=== PATIENT | male | born 1950 | race Caucasian/White ===

== ENCOUNTER → 2019-09-16 | Outpatient (CLI) | payer OTHER ==
[~2019-09-16] MED LIST: ESOM20CA PO; GAS X PO; IRON PO; LACT1CAP35 PO
[2019-09-16 10:41] LABS: BASOPHILS # (AUTO) 0.01 x10^3/uL (0-0.1); BASOPHILS % (AUTO) 0 % (0-1); EOSINOPHILS # (AUTO) 0.05 x10^3/uL (0-0.4); EOSINOPHILS % (AUTO) 1 % (1-7); LYMPHOCYTES # (AUTO) 0.44 x10^3/uL (1-3.4); LYMPHOCYTES % (AUTO) 8 % (22-44); MD NO; MEAN CORPUSCULAR HEMOGLOBIN 23.4 pg (27.5-34.5); MEAN CORPUSCULAR HGB CONC 30.8 g/dL (33.2-36.2); MEAN PLATELET VOLUME 6.9 fL (7.4-10.4); MONOCYTES # (AUTO) 0.42 x10^3/uL (0.2-0.8); MONOCYTES % (AUTO) 8 % (2-9); NEUTROPHILS # (AUTO) 4.35 x10^3/uL (1.8-6.8); NEUTROPHILS % (AUTO) 83 % (42-75); PLATELET COUNT 141 x10^3/uL (130-400); RED BLOOD COUNT 4.69 x10^6/uL (4.38-5.82); RED CELL DISTRIBUTION WIDTH 21.6 % (9.4-14.8)
[2019-09-16 10:54] LABS: ALANINE AMINOTRANSFERASE 24 U/L (12-78); ALBUMIN 3.2 g/dL (3.4-5.0); ANION GAP 8 mmol/L (5-15); CALCIUM 9.5 mg/dL (8.5-10.1); CHLORIDE 102 mmol/L (98-107); CREATININE 1.29 mg/dL (0.7-1.3)
[2019-09-16 10:57] LABS: ALKALINE PHOSPHATASE 95 U/L (45-117); BILIRUBIN,TOTAL 0.5 mg/dL (0.2-1.0); TOTAL PROTEIN 8.4 g/dL (6.4-8.2)
== END | disposition home or self-care (01) ==
LOC: STAR 09:39
PROVIDERS: ATTEND Surgery Vascular Surgery
DX: Z01.818 Encounter for other preprocedural examination (principal)
CPT/HCPCS: 36415; 80053; 85025; 93005

== ENCOUNTER 2019-09-20 05:54 | Inpatient (IN) | payer MEDICARE, OTHER ==
[~2019-09-20] VITALS: Ht 182.9 cm; Wt 66.3 kg
[2019-09-20] MEDS ORDERED: PROTAMINE SULFATE 10 MG/ML, 5ML ONE (06:12)
[2019-09-20] MEDS ORDERED: BACITRACIN 50,000 UNIT ONE (06:13)
[2019-09-20] MEDS ORDERED: HEPARIN 1,000 UNITS/ML, 10ML ONE (06:13)
[2019-09-20] MEDS ORDERED: FENTANYL PF 250 MCG/5ML ONE (06:55)
[2019-09-20] MEDS ORDERED: MIDAZOLAM 1 MG/ML, 2ML ONE (06:55)
[2019-09-20] MEDS ORDERED: PROPOFOL 10 MG/ML, 20ML ONE (06:55)
[2019-09-20] MEDS ORDERED: ROCURONIUM 10MG/ML,5ML ONE ×2 (06:55→09:49)
[2019-09-20] MEDS ORDERED: ONDANSETRON 2MG/ML, 2ML ONE (06:56)
[2019-09-20] MEDS ORDERED: CEFAZOLIN 1,000 MG ONE ×2 (06:56)
[2019-09-20] MEDS ORDERED: MEPERIDINE/PF 25MG/0.5ML IVPush PRN (07:00)
[2019-09-20] MEDS ORDERED: PROMETHAZINE 25 MG/ML, 1ML IVPush PRN (07:00)
[2019-09-20] MEDS ORDERED: CHLORHEXIDINE 15 ML UDC MM ONE (07:00)
[2019-09-20] MEDS ORDERED: LABETALOL 5MG/ML, 20ML IV PRN (07:00)
[2019-09-20] MEDS ORDERED: OXYcodone 5 MG/5 ML ORAL.SOL UDC PO PRN (07:00)
[2019-09-20] MEDS ORDERED: DIAZEPAM 5 MG/ML, 2ML IVPush PRN (07:00)
[2019-09-20] MEDS ORDERED: hydrALAzine 20 MG/ML, 1ML IV PRN (07:00)
[2019-09-20] MEDS ORDERED: ONDANSETRON 2MG/ML, 2ML IVPush PRN (07:00)
[2019-09-20] MEDS ORDERED: FENTANYL PF 100 MCG/2ML IV PRN (07:00)
[2019-09-20] MEDS ORDERED: HYDROmorphone 1 MG/ML, 1ML INJ IVPush PRN (07:00)
[2019-09-20] MEDS: LACTATED RINGERS 1,000 ML IV SCH (07:03)
[2019-09-20] MEDS ORDERED: ALBUMIN HUMAN 5% 500 ML ONE (07:57)
[2019-09-20] MEDS ORDERED: PHENYLEPHRINE 10 MG/ML ONE (08:18)
[2019-09-20] MEDS ORDERED: HEPARIN 1,000 UNITS/ML, 30ML ONE (09:11)
[2019-09-20] MEDS ORDERED: AMIODARONE 450 MG in DEXTROSE 5% 241 ML IV PRN (09:30)
[2019-09-20] MEDS ORDERED: AMIODARONE 150 MG in DEXTROSE 5% 100 ML IV ONE (09:30)
[2019-09-20] MEDS ORDERED: FILTER 0.22 MICRON FOR AMIODARONE IV PRN (09:30)
[2019-09-20] MEDS ORDERED: INSULIN SINGLE DOSE, ER ONE (10:15)
[2019-09-20] MEDS ORDERED: DEXTROSE 5% 50 ML IV ONE (10:30)
[2019-09-20] MEDS ORDERED: CALCIUM CHLORIDE 10%, 10ML SYR ONE (10:42)
[2019-09-20] MEDS ORDERED: PROPOFOL 50 ML ONE (11:35)
[2019-09-20] MEDS ORDERED: PROPOFOL 100 ML IV PRN (11:53)
[2019-09-20 12:00] VITALS: BP 90/55
[2019-09-20] MEDS ORDERED: SENNA 176 MG/5 ML ORAL SOL NG PRN (12:00)
[2019-09-20] MEDS ORDERED: BISACODYL 10 MG SUPP PR PRN (12:00)
[2019-09-20] MEDS ORDERED: FENTANYL PF 100 MCG/2ML IVPush PRN ×2 (12:00→16:30)
[2019-09-20] MEDS ORDERED: LACTULOSE 20 GM/30 ML UDC NG PRN (12:00)
[2019-09-20] MEDS ORDERED: PANTOPRAZOLE 40 MG IV IV SCH (12:00)
[2019-09-20] MEDS ORDERED: LIDOCAINE-MPF 1%, 2ML ENDO PRN (12:00)
[2019-09-20] MEDS ORDERED: PHARMACY MAY ADJ FOR RENAL FX MC SCH (12:00)
[2019-09-20] MEDS ORDERED: SODIUM CHLORIDE 0.9% 1,000 ML IV SCH (12:00)
[2019-09-20] MEDS ORDERED: PROPOFOL 100 ML IV ONE (12:01)
[2019-09-20 12:15] VITALS: BP 112/69
[2019-09-20] MEDS ORDERED: SODIUM BICARBONATE 8.4% 150 MEQ in DEXTROSE 5% 1,000 ML IV SCH (13:00)
[2019-09-20 13:15] VITALS: BP 105/78
[2019-09-20 13:17] LABS: MEAN CORPUSCULAR HEMOGLOBIN 25.7 pg (27.5-34.5); MEAN CORPUSCULAR HGB CONC 31.3 g/dL (33.2-36.2); MEAN PLATELET VOLUME 8.6 fL (7.4-10.4); PLATELET COUNT 179 x10^3/uL (130-400); RED BLOOD COUNT 5.23 x10^6/uL (4.38-5.82); RED CELL DISTRIBUTION WIDTH 19.3 % (9.4-14.8)
[2019-09-20 13:18] LABS: BASOPHILS # (AUTO) 0.01 x10^3/uL (0-0.1); BASOPHILS % (AUTO) 0 % (0-1); EOSINOPHILS # (AUTO) 0.01 x10^3/uL (0-0.4); EOSINOPHILS % (AUTO) 0 % (1-7); LYMPHOCYTES # (AUTO) 0.47 x10^3/uL (1-3.4); LYMPHOCYTES % (AUTO) 3 % (22-44); MD MORPH REVIEW ONLY; MONOCYTES # (AUTO) 1.47 x10^3/uL (0.2-0.8); MONOCYTES % (AUTO) 9 % (2-9); NEUTROPHILS # (AUTO) 14.61 x10^3/uL (1.8-6.8); NEUTROPHILS % (AUTO) 88 % (42-75)
[2019-09-20 13:19] LABS: ANISOCYTOSIS 1+; ECHINOCYTES 1+; OVALOCYTES 1+
[2019-09-20 13:20] LABS: <PLATELET ESTIMATE> ADEQUATE; <PLT MORPHOLOGY> NORMAL PLT MORPH; ANION GAP 13 mmol/L (5-15); CALCIUM 9.3 mg/dL (8.5-10.1); CHLORIDE 107 mmol/L (98-107); MICROCYTOSIS 1+
[2019-09-20 13:24] LABS: INTERNATIONAL NORMALIZED RATIO 1.07 (0.93-1.1); PROTHROMBIN TIME 11.3 Seconds (9.6-11.5)
[2019-09-20 13:25] LABS: ALANINE AMINOTRANSFERASE 24 U/L (12-78); ALKALINE PHOSPHATASE 59 U/L (45-117); BILIRUBIN,TOTAL 1.5 mg/dL (0.2-1.0); CREATININE 1.12 mg/dL (0.7-1.3); TOTAL PROTEIN 6.1 g/dL (6.4-8.2)
[2019-09-20] MEDS ORDERED: SODIUM CHLORIDE 0.9% 1,000ML IVBOLUS ONE (14:30)
[2019-09-20] MEDS ORDERED: ALBUMIN HUMAN 25% 100 ML IV ONE ×2 (14:30)
[2019-09-20] MEDS ORDERED: ALBUMIN HUMAN 25% 200 ML ONE (14:31)
[2019-09-20 15:52] LABS: MICROSCOPIC INDICATED
[2019-09-20] MEDS ORDERED: SUCRALFATE 1 GM/10 ML UDC PO PRN (16:00)
[2019-09-20] MEDS ORDERED: OXYcodone IR 5MG TABLET ONE ×2 (16:15→18:11)
[2019-09-20] MEDS ORDERED: OXYcodone IR 5MG TABLET PO PRN ×2 (16:30→20:30)
[2019-09-20] MEDS ORDERED: FENTANYL PF 100 MCG/2ML ONE (17:39)
[2019-09-20] MEDS: FENTANYL PF 100 MCG/2ML IVPush PRN ×2 (17:44→21:24)
[2019-09-20] MEDS: OXYcodone IR 5MG TABLET PO PRN ×2 (18:17→22:50)
[2019-09-20] MEDS: LACTOBACILLUS CHEW TABLET PO SCH (21:31)
[2019-09-20 21:39] LABS: ANION GAP 7 mmol/L (5-15); CHLORIDE 108 mmol/L (98-107); CREATININE 1.18 mg/dL (0.7-1.3)
[2019-09-20 22:04] LABS: BASOPHILS % (AUTO) 0 % (0-1); EOSINOPHILS # (AUTO) 0.13 x10^3/uL (0-0.4); EOSINOPHILS % (AUTO) 1 % (1-7); LYMPHOCYTES # (AUTO) 0.18 x10^3/uL (1-3.4); LYMPHOCYTES % (AUTO) 2 % (22-44); MD NO; MEAN CORPUSCULAR HEMOGLOBIN 25.8 pg (27.5-34.5); MEAN CORPUSCULAR HGB CONC 32.7 g/dL (33.2-36.2); MONOCYTES # (AUTO) 1.12 x10^3/uL (0.2-0.8); MONOCYTES % (AUTO) 10 % (2-9); NEUTROPHILS # (AUTO) 10.16 x10^3/uL (1.8-6.8); NEUTROPHILS % (AUTO) 88 % (42-75); PLATELET COUNT 118 x10^3/uL (130-400); RED BLOOD COUNT 4.26 x10^6/uL (4.38-5.82); RED CELL DISTRIBUTION WIDTH 18.7 % (9.4-14.8)
[2019-09-21] MEDS: SODIUM CHLORIDE 0.9% 1,000 ML IV SCH ×2 (00:23→13:20)
[2019-09-21] MEDS: FENTANYL PF 100 MCG/2ML IVPush PRN ×2 (00:23→06:16)
[2019-09-21] MEDS: OXYcodone IR 5MG TABLET PO PRN ×4 (04:27→22:19)
[2019-09-21 04:32] VITALS: BP 109/62
[2019-09-21 04:50] LABS: BASOPHILS % (AUTO) 0 % (0-1); EOSINOPHILS % (AUTO) 0 % (1-7); LYMPHOCYTES # (AUTO) 0.26 x10^3/uL (1-3.4); LYMPHOCYTES % (AUTO) 2 % (22-44); MD NO; MEAN CORPUSCULAR HGB CONC 32.8 g/dL (33.2-36.2); MEAN CORPUSCULAR VOLUME 79.1 fL (81-97); MEAN PLATELET VOLUME 8.9 fL (7.4-10.4); MONOCYTES # (AUTO) 1.19 x10^3/uL (0.2-0.8); MONOCYTES % (AUTO) 9 % (2-9); NEUTROPHILS # (AUTO) 11.99 x10^3/uL (1.8-6.8); NEUTROPHILS % (AUTO) 89 % (42-75); PLATELET COUNT 110 x10^3/uL (130-400); RED BLOOD COUNT 4.34 x10^6/uL (4.38-5.82); RED CELL DISTRIBUTION WIDTH 19.5 % (9.4-14.8)
[2019-09-21 04:55] LABS: ANION GAP 9 mmol/L (5-15); CHLORIDE 106 mmol/L (98-107); CREATININE 1.21 mg/dL (0.7-1.3)
[2019-09-21] MEDS: LACTOBACILLUS CHEW TABLET PO SCH ×4 (05:59→21:01)
[2019-09-21] MEDS: LIDODERM 5% PATCH TD SCH (08:48)
[2019-09-21] MEDS: SENNA/DOCUSATE TABLET NG PRN ×2 (08:50→14:07)
[2019-09-21 13:54] VITALS: BP 100/67
[2019-09-21 14:35] LABS: ANION GAP 10 mmol/L (5-15); CHLORIDE 103 mmol/L (98-107); CREATININE 1.62 mg/dL (0.7-1.3)
[2019-09-21 14:45] LABS: MEAN CORPUSCULAR HGB CONC 32.8 g/dL (33.2-36.2); MEAN CORPUSCULAR VOLUME 79.3 fL (81-97); MEAN PLATELET VOLUME 9.2 fL (7.4-10.4); PLATELET COUNT 122 x10^3/uL (130-400); RED BLOOD COUNT 4.47 x10^6/uL (4.38-5.82); RED CELL DISTRIBUTION WIDTH 19.4 % (9.4-14.8)
[2019-09-21 15:38] LABS: BASOPHILS % (AUTO) 0 % (0-1); EOSINOPHILS % (AUTO) 0 % (1-7); LYMPHOCYTES # (AUTO) 0.25 x10^3/uL (1-3.4); LYMPHOCYTES % (AUTO) 1 % (22-44); MD SCAN; MONOCYTES % (AUTO) 9 % (2-9); NEUTROPHILS # (AUTO) 15.41 x10^3/uL (1.8-6.8); NEUTROPHILS % (AUTO) 90 % (42-75)
[2019-09-21 17:10] LABS: SODIUM,URINE RANDOM < 5 mmol/L
[2019-09-21 18:47] VITALS: BP 93/64
[2019-09-22 01:58] VITALS: BP 103/70
[2019-09-22 04:47] LABS: MEAN CORPUSCULAR HEMOGLOBIN 25.9 pg (27.5-34.5); MEAN CORPUSCULAR HGB CONC 31.8 g/dL (33.2-36.2); MEAN CORPUSCULAR VOLUME 81.2 fL (81-97); MEAN PLATELET VOLUME 8.7 fL (7.4-10.4); PLATELET COUNT 119 x10^3/uL (130-400)
[2019-09-22 04:55] LABS: CHLORIDE 102 mmol/L (98-107)
[2019-09-22 05:02] LABS: ALANINE AMINOTRANSFERASE 25 U/L (12-78); ALBUMIN 3.1 g/dL (3.4-5.0); ALKALINE PHOSPHATASE 69 U/L (45-117); ANION GAP 10 mmol/L (5-15); BILIRUBIN,TOTAL 1.8 mg/dL (0.2-1.0); CREATININE 2.23 mg/dL (0.7-1.3); TOTAL PROTEIN 6.5 g/dL (6.4-8.2)
[2019-09-22 05:41] LABS: BASOPHILS % (AUTO) 0 % (0-1); EOSINOPHILS % (AUTO) 0 % (1-7); LYMPHOCYTES # (AUTO) 0.27 x10^3/uL (1-3.4); LYMPHOCYTES % (AUTO) 2 % (22-44); MD SCAN; MONOCYTES # (AUTO) 1.84 x10^3/uL (0.2-0.8); MONOCYTES % (AUTO) 11 % (2-9); NEUTROPHILS # (AUTO) 14.67 x10^3/uL (1.8-6.8); NEUTROPHILS % (AUTO) 87 % (42-75)
[2019-09-22] MEDS: LACTOBACILLUS CHEW TABLET PO SCH ×4 (06:07→20:20)
[2019-09-22] MEDS: OXYcodone IR 5MG TABLET PO PRN (06:07)
[2019-09-22 06:53] VITALS: BP 103/69
[2019-09-22] MEDS: LIDODERM 5% PATCH TD SCH (08:07)
[2019-09-22 12:50] VITALS: BP 103/66
[2019-09-22 19:22] VITALS: BP 102/68
[2019-09-23 00:17] VITALS: BP 102/67
[2019-09-23] MEDS: LACTOBACILLUS CHEW TABLET PO SCH ×4 (04:56→21:11)
[2019-09-23] MEDS: SENNA/DOCUSATE TABLET NG PRN (07:34)
[2019-09-23] MEDS: LIDODERM 5% PATCH TD SCH (07:34)
[2019-09-23 08:10] VITALS: BP 96/60
[2019-09-23 08:53] LABS: ANION GAP 7 mmol/L (5-15); CALCIUM 8.9 mg/dL (8.5-10.1); CHLORIDE 100 mmol/L (98-107); CREATININE 2.49 mg/dL (0.7-1.3)
[2019-09-23 09:22] LABS: BASOPHILS % (AUTO) 0 % (0-1); EOSINOPHILS # (AUTO) 0.02 x10^3/uL (0-0.4); EOSINOPHILS % (AUTO) 0 % (1-7); LYMPHOCYTES % (AUTO) 3 % (22-44); MD SCAN; MEAN CORPUSCULAR HEMOGLOBIN 26.1 pg (27.5-34.5); MEAN CORPUSCULAR HGB CONC 32.8 g/dL (33.2-36.2); MEAN CORPUSCULAR VOLUME 79.4 fL (81-97); MEAN PLATELET VOLUME 8.9 fL (7.4-10.4); MONOCYTES # (AUTO) 0.73 x10^3/uL (0.2-0.8); MONOCYTES % (AUTO) 8 % (2-9); NEUTROPHILS % (AUTO) 89 % (42-75); PLATELET COUNT 81 x10^3/uL (130-400); RED BLOOD COUNT 3.94 x10^6/uL (4.38-5.82); RED CELL DISTRIBUTION WIDTH 20.3 % (9.4-14.8)
[2019-09-23 13:17] VITALS: BP 96/88
[2019-09-23] MEDS: ACETAMINOPHEN 500 MG TABLET PO PRN ×2 (14:23→21:36)
[2019-09-23 18:52] VITALS: BP 98/68
[2019-09-24 02:00] VITALS: BP 105/62
[2019-09-24 05:27] LABS: BASOPHILS % (AUTO) 0 % (0-1); EOSINOPHILS # (AUTO) 0.07 x10^3/uL (0-0.4); EOSINOPHILS % (AUTO) 1 % (1-7); LYMPHOCYTES # (AUTO) 0.36 x10^3/uL (1-3.4); LYMPHOCYTES % (AUTO) 5 % (22-44); MD NO; MEAN CORPUSCULAR HEMOGLOBIN 25.8 pg (27.5-34.5); MEAN CORPUSCULAR HGB CONC 32.5 g/dL (33.2-36.2); MEAN CORPUSCULAR VOLUME 79.4 fL (81-97); MEAN PLATELET VOLUME 8.3 fL (7.4-10.4); MONOCYTES # (AUTO) 0.94 x10^3/uL (0.2-0.8); MONOCYTES % (AUTO) 13 % (2-9); NEUTROPHILS # (AUTO) 5.65 x10^3/uL (1.8-6.8); NEUTROPHILS % (AUTO) 80 % (42-75); PLATELET COUNT 79 x10^3/uL (130-400); RED BLOOD COUNT 3.47 x10^6/uL (4.38-5.82); RED CELL DISTRIBUTION WIDTH 20.3 % (9.4-14.8)
[2019-09-24 05:36] LABS: ANION GAP 7 mmol/L (5-15); CALCIUM 8.7 mg/dL (8.5-10.1); CHLORIDE 101 mmol/L (98-107); CREATININE 2.14 mg/dL (0.7-1.3)
[2019-09-24] MEDS: LACTOBACILLUS CHEW TABLET PO SCH ×4 (06:05→19:53)
[2019-09-24 08:03] VITALS: BP 93/61
[2019-09-24] MEDS: LIDODERM 5% PATCH TD SCH (10:07)
[2019-09-24] MEDS: SENNA/DOCUSATE TABLET NG PRN (10:38)
[2019-09-24] MEDS: MULTIVITAMINS WITH IRON TABLET PO SCH (11:35)
[2019-09-24 12:49] VITALS: BP 105/64
[2019-09-24] MEDS: ACETAMINOPHEN 500 MG TABLET PO PRN ×2 (13:15→19:53)
[2019-09-24 18:38] VITALS: BP 99/66
[2019-09-25 00:25] VITALS: BP 111/71
[2019-09-25] MEDS: ACETAMINOPHEN 500 MG TABLET PO PRN (02:16)
[2019-09-25 05:19] LABS: MEAN CORPUSCULAR HGB CONC 32.6 g/dL (33.2-36.2); MEAN CORPUSCULAR VOLUME 79.6 fL (81-97); RED CELL DISTRIBUTION WIDTH 20.3 % (9.4-14.8)
[2019-09-25] MEDS: LACTOBACILLUS CHEW TABLET PO SCH ×3 (05:26→16:08)
[2019-09-25 05:28] LABS: ANION GAP 8 mmol/L (5-15); CALCIUM 9.1 mg/dL (8.5-10.1); CHLORIDE 102 mmol/L (98-107)
[2019-09-25 05:29] LABS: CREATININE 1.81 mg/dL (0.7-1.3)
[2019-09-25 06:00] LABS: MEAN PLATELET VOLUME 8.5 fL (7.4-10.4); PLATELET COUNT 97 x10^3/uL (130-400)
[2019-09-25 06:06] LABS: BASOPHILS % (AUTO) 0 % (0-1); EOSINOPHILS # (AUTO) 0.04 x10^3/uL (0-0.4); EOSINOPHILS % (AUTO) 1 % (1-7); LYMPHOCYTES # (AUTO) 0.18 x10^3/uL (1-3.4); LYMPHOCYTES % (AUTO) 3 % (22-44); MD SCAN; MONOCYTES % (AUTO) 12 % (2-9); NEUTROPHILS # (AUTO) 5.75 x10^3/uL (1.8-6.8); NEUTROPHILS % (AUTO) 85 % (42-75)
[2019-09-25] MEDS ORDERED: SODIUM BICARB 8.4%, 50ML SYRINGE IVPush ONE (07:30)
[2019-09-25] MEDS ORDERED: FUROSEMIDE 20 MG/2 ML IV ONE (08:00)
[2019-09-25] MEDS: LIDODERM 5% PATCH TD SCH (09:21)
[2019-09-25] MEDS ORDERED: LIDOCAINE 1%, 10ML ONE (09:25)
[2019-09-25] MEDS ORDERED: ACET500T64 PO (10:31)
[2019-09-25 11:05] VITALS: BP 97/60
[2019-09-25] MEDS: MULTIVITAMINS WITH IRON TABLET PO SCH (11:31)
[2019-09-25 14:17] VITALS: BP 101/66
== END 2019-09-25 17:46 | disposition hospice, inpatient (51) | DRG 423 ==
LOC: ORIP 05:54 → CCU 11:45 → 4WST 09-21 12:30 → 4NW 09-23 22:07
PROVIDERS: ADMIT Surgery Vascular Surgery; ATTEND Hospitalist
PROC: 30233K1 Transfusion of Nonautologous Frozen Plasma into Peripheral Vein, Percutaneous Approach (ICD-10-PCS; 2019-09-20)
PROC: 30233N1 Transfusion of Nonautologous Red Blood Cells into Peripheral Vein, Percutaneous Approach (ICD-10-PCS; 2019-09-20)
PROC: 30233R1 Transfusion of Nonautologous Platelets into Peripheral Vein, Percutaneous Approach (ICD-10-PCS; 2019-09-20)
PROC: 0W3P0ZZ Control Bleeding in Gastrointestinal Tract, Open Approach (ICD-10-PCS; principal; 2019-09-20 07:00)
PROC: 0W9G3ZZ Drainage of Peritoneal Cavity, Percutaneous Approach (ICD-10-PCS; 2019-09-22)
PROC: 0W9G3ZZ Drainage of Peritoneal Cavity, Percutaneous Approach (ICD-10-PCS; 2019-09-25)
DX: K72.90 Hepatic failure, unspecified without coma (principal); J95.821 Acute postprocedural respiratory failure; K76.7 Hepatorenal syndrome; R18.8 Other ascites; K76.6 Portal hypertension; E87.2 Acidosis; I47.2 Ventricular tachycardia; K92.2 Gastrointestinal hemorrhage, unspecified; N17.9 Acute kidney failure, unspecified; D50.9 Iron deficiency anemia, unspecified; D69.59 Other secondary thrombocytopenia; K74.60 Unspecified cirrhosis of liver; K80.50 Calculus of bile duct without cholangitis or cholecystitis without obstruction; Z66 Do not resuscitate; Z51.5 Encounter for palliative care; Z86.718 Personal history of other venous thrombosis and embolism; Z90.49 Acquired absence of other specified parts of digestive tract; Z95.828 Presence of other vascular implants and grafts; Z20.828 Contact with and (suspected) exposure to other viral communicable diseases
CPT/HCPCS: 36415; 36600; 84145; J3490; 49083; 71045; 80047; 80048; 80053; 81001; 82140; 82533; 82570; 82803; 83605; 83735; 84100; 84300; 84443; 84478; 85025; 85610; 85730; 86850; 86900; 86923; 87040; 87070; 87081; 87086; 87205; 87635; 94002; G0378; J0690; J1644; J2250; J2405; J2704; J2720; J3010; J7070; P9045; P9047; C9113; J1815; J1940; J2370; J7030; J7120; P9016; P9017; P9035